=== PATIENT | male | born 2000 | race Two or more races ===

== ENCOUNTER → 2024-12-05 | Outpatient (CLI) | payer OTHER, SELFPAY ==
--- NOTE | 2024-12-05 14:00 | XR_ITS ---
Examination: MRI lumbar spine without contrast Date and time of exam: December 05, 2024 1410 hours INDICATIONS: Low back pain for years radiating down the left leg Technique: Multiple MRI axial and sagittal sections lumbar spine. Sagittal T2-weighted images, TR 3500, TE 118 T1 weighted transverse sections, TR 688 T8.5, T2-weighted sagittal sections T1 weighted sagittal sections TR 621, TE 30 T2 axial sections, TR 4, 190, TE 84. Findings: 2 mm anterolisthesis L5 on S1 Disc desiccation L5-S1 Moderate disc and posteriorly L5-S1 No lumbar fracture Normal marrow signal lumbar vertebral bodies L5-S1 no disc protrusion L4-L5 2 mm central lumbar disc bulge L3-L4 no disc protrusion L2-L3 no disc protrusion L1-L2 no disc protrusion IMPRESSION: L4-L5 2 mm central lumbar disc bulge
== END | disposition home or self-care (01) ==
LOC: SMRI 13:39
PROVIDERS: PCP Nurse Practitioner Primary Care; Referring Provider Nurse Practitioner Primary Care; Visit Provider Nurse Practitioner Primary Care
DX: M51.369 Other intervertebral disc degeneration, lumbar region without mention of lumbar back pain or lower extremity pain (principal)
CPT/HCPCS: 72148